=== PATIENT | female | born 1980 | race Hispanic/Latino ===

== ENCOUNTER → 2023-07-24 07:45 | Outpatient (REF) | payer OTHER, SELFPAY ==
[2023-07-24 08:28] LABS: Mean Corp Hgb Conc. 33.3 g/dL (33.0-37.0); Mean Corpuscular Hgb 29.9 pg (27.0-31.0); Mean Corpuscular Volume 89.6 fL (81.0-99.0); Mean Platelet Volume 9.3 fL (7.4-10.4); Platelet Count 312 10^3/uL (130-400); Red Blood Cell Count 4.02 10^6/uL (4.20-5.40); White Blood Cell Count 7.9 10^3/uL (4.8-10.8)
[2023-07-24 09:12] LABS: ALT (SGPT) 66 U/L (0-35); AST (SGOT) 39 U/L (14-36); Albumin 4.2 g/dl (3.5-5.0); Alkaline Phosphatase 89 U/L (38-126); Blood Urea Nitrogen 16 mg/dl (7-17); Calcium 8.4 mg/dl (8.4-10.2); Carbon Dioxide 22 mmol/L (22-30); Chloride 108 mmol/L (98-107); Glucose 113 mg/dl (70-99); HDL Cholesterol 56 mg/dl; LDL Cholesterol, Calculated 113 mg/dl; Potassium 4.5 mmol/L (3.5-5.1); Sodium 134 mmol/L (135-145); Total Bilirubin 0.5 mg/dl (0.2-1.3); Total Cholesterol 194 mg/dl (50-199); Total Protein 6.9 g/dl (6.3-8.2); Triglyceride 127 mg/dl (10-149); Very Low Density Lipoprotein 25 mg/dl (0-30); eGFR > 60.00
== END ==
LOC: REG 07:45
PROVIDERS: ATTENDING PHYSICIAN Nurse Practitioner Adult Health
DX: R73.03 Prediabetes (principal)
CPT/HCPCS: 36415; 80053; 80061; 83036; 85027

== ENCOUNTER → 2024-03-28 10:32 | Outpatient (REF) | payer OTHER, SELFPAY ==
[2024-03-28 11:41] LABS: ALT (SGPT) 60 U/L (0-35); AST (SGOT) 38 U/L (14-36); Albumin 4.5 g/dl (3.5-5.0); Alkaline Phosphatase 75 U/L (38-126); Blood Urea Nitrogen 13 mg/dl (7-17); Calcium 9.2 mg/dl (8.4-10.2); Carbon Dioxide 21 mmol/L (22-30); Chloride 104 mmol/L (98-107); Glucose 95 mg/dl (70-99); Potassium 4.5 mmol/L (3.5-5.1); Sodium 139 mmol/L (135-145); Total Bilirubin 0.4 mg/dl (0.2-1.3); Total Protein 7.4 g/dl (6.3-8.2); eGFR > 60.00
[2024-03-28 13:10] LABS: Glycohemoglobin (HgbA1c) 5.6 % (4.0-5.6)
== END ==
LOC: REG 10:32
PROVIDERS: ATTENDING PHYSICIAN Nurse Practitioner Adult Health
DX: R73.03 Prediabetes (principal); R74.8 Abnormal levels of other serum enzymes
CPT/HCPCS: 36415; 80053; 83036

== ENCOUNTER → 2024-08-30 07:22 | Outpatient (REF) | payer OTHER, SELFPAY ==
[2024-08-30 09:03] LABS: ALT (SGPT) 167 U/L (0-35); AST (SGOT) 78 U/L (14-36); Alkaline Phosphatase 86 U/L (38-126); Blood Urea Nitrogen 12 mg/dl (7-17); Calcium 8.9 mg/dl (8.4-10.2); Carbon Dioxide 25 mmol/L (22-30); Chloride 105 mmol/L (98-107); Glucose 126 mg/dl (70-99); HDL Cholesterol 50 mg/dl; LDL Cholesterol, Calculated 102 mg/dl; Potassium 4.6 mmol/L (3.5-5.1); Sodium 137 mmol/L (135-145); Total Bilirubin 0.4 mg/dl (0.2-1.3); Total Cholesterol 186 mg/dl (50-199); Total Protein 6.8 g/dl (6.3-8.2); Triglyceride 172 mg/dl (10-149); Very Low Density Lipoprotein 34 mg/dl (0-30); eGFR > 60.00
== END ==
LOC: REG 07:22
PROVIDERS: ATTENDING PHYSICIAN Nurse Practitioner Adult Health
DX: E78.1 Pure hyperglyceridemia (principal); R74.8 Abnormal levels of other serum enzymes
CPT/HCPCS: 80053; 80061

== ENCOUNTER → 2024-10-07 07:14 | Outpatient (REF) | payer OTHER, SELFPAY | LOC: HWRAD 07:14 | PROVIDERS: ATTENDING PHYSICIAN Nurse Practitioner Adult Health | DX: R74.8 Abnormal levels of other serum enzymes (principal) | CPT/HCPCS: 76700 ==

== ENCOUNTER → 2024-10-14 13:42 | Outpatient (REF) | payer OTHER, SELFPAY | LOC: CLINIC 13:42 | PROVIDERS: ATTENDING PHYSICIAN Nurse Practitioner Adult Health | DX: K76.9 Liver disease, unspecified (principal) | CPT/HCPCS: 74170; Q9967 ==

== ENCOUNTER → 2025-01-22 08:00 | Outpatient (REF) | payer OTHER, SELFPAY ==
[2025-01-22 09:31] LABS: Glycohemoglobin (HgbA1c) 5.9 % (4.0-5.6)
[2025-01-22 10:30] LABS: ALT (SGPT) 149 U/L (0-35); AST (SGOT) 79 U/L (14-36); Albumin 4.2 g/dl (3.5-5.0); Alkaline Phosphatase 73 U/L (38-126); Blood Urea Nitrogen 11 mg/dl (7-17); Calcium 8.4 mg/dl (8.4-10.2); Carbon Dioxide 25 mmol/L (22-30); Chloride 108 mmol/L (98-107); Glucose 127 mg/dl (70-99); Potassium 4.7 mmol/L (3.5-5.1); Sodium 138 mmol/L (135-145); Total Protein 6.9 g/dl (6.3-8.2); eGFR > 60.00
[2025-01-22 11:55] LABS: Hepatitis B Surface Antigen Negative (Negative)
[2025-01-22 12:14] LABS: Hepatitis C Antibody Negative (Negative)
== END ==
LOC: REG 08:00
PROVIDERS: ATTENDING PHYSICIAN Nurse Practitioner Adult Health
DX: R74.8 Abnormal levels of other serum enzymes (principal); R73.03 Prediabetes
CPT/HCPCS: 36415; 80053; 83036; 86704; 86706; 86803; 87340